=== PATIENT | female | born 1990 | race Native Hawaiian/Other Pacific Islander ===

== ENCOUNTER → 2018-05-03 | Outpatient (CLI) | payer OTHER ==
--- NOTE | ~2018-05-03 | PATH ---
[facility] [place] [place] [address] PATHOLOGY RPT PROCEDURE Name: CHRISTEN BECKMAN Room #: REG [facility].#: [id number] Admission: 05/03/18 Date of : 89 Discharge: Report #: [id number] Path Case #: [id number] Note [facility] Accession Number: [id number] TESTS RESULT FLAG UNITS REF RANGE LAB Clinician Provided Cytology Information No. of containers..01 Other (Miscellaneous) Source: LT INFERIOR THYROID DIAGNOSIS: LT INFERIOR THYROID NEGATIVE FOR MALIGNANT CELLS. BETHESDA CATEGORY II. SPECIMEN CONSISTS OF FOLLICULAR CELLS MACROFOLLICLES, HEMOSIDERIN-LADEN MACROPHAGES, COLLOID, AND BLOOD. THIS PATTERN IS COMPATIBLE WITH A COLLOID NODULE. THIS INTERPRETATION INCLUDES EVALUATION OF A CELL BLOCK. Comment: Examination shows few follicular cells in macrofollicles, dense colloid and many macrophages. Nuclear features of papillary thyroid carcinoma are not identified. Findings are suggestive of an adenomatoid nodule. 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 Correlate clinically and follow-up as indicated. Pathologist ICD10: 02 E04.1 Signed out by: 02 Rosey Gamboa MD, Pathologist NPI- [id number] Performed by: 03 Brittany Jimenez, [employer] (ASCP) Gross description: 01 20 ML, DARK RED, CLEAR /LCS FLAG LEGEND: L-Low Normal,H-High Normal,LL-Alert Low,HH-Alert High <-Panic Low,>-Panic High,A-Abnormal,AA-Critical Abnormal Performed at: 01 [facility] [address] [facility] [address] [place] [address] Sarbjit Riddle MD, [address] [address] Rosey Gamboa MD, 03 JAYKS [facility] [address] [place] [phone] [address] PATHOLOGY RPT PROCEDURE Name: CHRISTEN BECKMAN Room #: REG [facility] Arteaga#: [id number] Admission: 05/03/18 Date of : 89 Discharge: Report #: [id number] Path Case #: [id number] Ricardo Pino MD, Performed at: 01 [facility] [address] [facility] [address], [place], [place] [id number] MD Sarbjit Riddle MD Phone: [phone]
--- NOTE | ~2018-05-03 | PATH ---
[facility] [place] [address] PATHOLOGY RPT PROCEDURE Name: CHRISTEN BECKMAN Room #: REG [facility].#: [id number] Admission: 05/03/18 Date of : 89 Discharge: Report #: [id number] Path Case #: [id number] Note [facility] Accession Number: [id number] TESTS RESULT FLAG UNITS REF RANGE LAB Clinician Provided Cytology Information No. of containers..01 Other (Miscellaneous) Source: 01 RT SUPERIOR THYROID DIAGNOSIS: 02 RIGHT SUPERIOR THYROID NEGATIVE FOR MALIGNANT CELLS. BETHESDA CATEGORY II. SPECIMEN CONSISTS OF FOLLICULAR CELLS IN MACROFOLLICLES, HEMOSIDERIN-LADEN MACROPHAGES, COLLOID, AND BLOOD. THIS PATTERN IS COMPATIBLE WITH A COLLOID NODULE. THIS INTERPRETATION INCLUDES EVALUATION OF A CELL BLOCK. Comment: Examination shows few thyroid follicular cells in macrofollicles, scant colloid and macrophages. Nucelar features of papillary thyroid carcinoma are not identified. Findings are most likely suggestive of an adenomatoid nodule. 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 Correlate clinically and follow-up as indicated. Pathologist ICD10: 02 E04.1 Signed out by: 02 Rosey Gamboa MD, Pathologist NPI- [id number] Performed by: 03 Brittany Jimenez, Civil Engineering Professional (ASCP) Gross description: 01 20 ML, PINK, CLEAR /LCS FLAG LEGEND: L-Low Normal,H-High Normal,LL-Alert Low,HH-Alert High <-Panic Low,>-Panic High,A-Abnormal,AA-Critical Abnormal Performed at: 01 [facility] [address] [facility] [address] [place] [address] Sarbjit Riddle MD, [address] [address] Rosey Gamboa MD, 03 TEODOROS [facility] [address] [phone] [address] PATHOLOGY RPT PROCEDURE Name: CHRISTEN BECKMAN Room #: REG PILAR Arteaga#: [id number] Admission: 05/03/18 Date of : 89 Discharge: Report #: [id number] Path Case #: [id number] Ricardo Pino MD, Performed at: 01 [facility] [address] [facility] [address], [place], [place] [id number] MD Sarbjit Riddle MD Phone: [phone]
== END | disposition home or self-care (01) ==
LOC: ULTRA 09:55
DX: E04.1 Nontoxic single thyroid nodule (principal); R22.1 Localized swelling, mass and lump, neck